=== PATIENT | male | born 1960 | race Caucasian/White ===

== ENCOUNTER 2021-03-13 07:50 | Observation (INO) | payer BC ==
[~2021-03-13] VITALS: Ht 177.8 cm; Wt 85.0 kg
[2021-03-13] MEDS ORDERED: ASPIRIN 81M81 MG/TA2 PO (07:57)
[2021-03-13] MEDS ORDERED: CRESTOR 10MG10 MG PO (07:57)
[2021-03-13 08:24] LABS: BASO # 0.1 (0.0-0.2); BASO % 0.8 % (0.0-2.0); EOS # 0.1 (0.0-0.7); EOS % 1.4 % (0-4.0); GRAN % 76.5 % (42.2-75.2); HEMATOCRIT 41.4 % (42.0-52.0); LYMPH # 1.1 (1.2-3.4); LYMPH % 16.1 % (20.0-51.0); MEAN CELL VOLUME 89 fl (80.0-100.0); MEAN CORPUSCULAR HEMOGLOBIN 30 pg (27.0-31.0); MEAN CORPUSCULAR HGB CONC 34 g/dl (33.0-37.0); MEAN PLATELET VOLUME 9.8 fl (7.4-10.4); MONO # 0.3 (0.1-0.6); MONO % 4.9 % (1.7-9.3); PLATELET COUNT 175 K/mm3 (130-400); RED BLOOD COUNT 4.66 M/mm3 (4.20-5.60)
[2021-03-13 08:32] LABS: INR 1.1 (0.8-3.0); PROTHROMBIN TIME 11.7 SECONDS (9.7-12.8)
[2021-03-13 08:37] VITALS: BP 163/83; PULSE 100
[2021-03-13 08:37] LABS: ALANINE AMINOTRANSFERASE 71 U/L (4-49); ALBUMIN 3.9 gm/dL (3.5-5.0); ALKALINE PHOSPHATASE 66 U/L (50-136); ANION GAP 4 mmol/L (7-16); AST,SGOT 91 U/L (15-37); BILIRUBIN,TOTAL 1.1 mg/dL (0.0-1.0); BLOOD UREA NITROGEN 20 mg/dL (9-20); CALCIUM 8.8 mg/dL (8.4-10.2); CARBON DIOXIDE 27 mmol/L (22-30); CHLORIDE 106 mmol/L (98-107); CREATINE KINASE 225 U/L (55-170); CREATININE, serum 0.84 (0.66-1.25); GLUCOSE 152 mg/dL (74-106); LIPASE 42 U/L (23-300); POTASSIUM 4.4 mmol/L (3.4-5.0); SODIUM 137 mmol/L (137-145); TOTAL PROTEIN 6.3 gm/dL (6.4-8.2)
[2021-03-13 08:40] LABS: C-REACTIVE PROTEIN < 0.5 mg/dL (0.0-0.9)
[2021-03-13 08:45] LABS: COLLECTION METHOD CATHETER
[2021-03-13 08:55] LABS: MUCOUS Present /lpf; PH 6 (5-8); SQUAMOUS EPITHELIAL None Seen /hpf; URINE APPEARANCE Clear; URINE BACTERIA None Seen /hpf; URINE BILIRUBIN Negative (NEGATIVE); URINE BLOOD Negative (NEGATIVE); URINE COLOR Yellow; URINE GLUCOSE Negative (NEGATIVE); URINE KETONE 1+ (NEGATIVE); URINE LEUKOCYTE ESTERASE Negative (NEGATIVE); URINE NITRATE Negative (NEGATIVE); URINE PROTEIN(semi-quant) Negative (NEGATIVE); URINE RBC 0-2 /hpf; URINE UROBILINOGEN Negative (NEGATIVE)
[2021-03-13 09:30] LABS: TROPONIN-I < 0.012 ng/mL (0.000-0.035)
[2021-03-13 13:38] VITALS: BP 124/65; PULSE 80; TEMP 98.6
--- NOTE | 2021-03-13 14:02 | NUR ---
Patient admitted to room 322. Patient has tele no on. Called ICU nurse, no boxes avaliable. Called Kaylee Pimentel. made her aware of needing box.
[2021-03-13] MEDS ORDERED: ONE DAILY MULTI1 TA1 PO (14:57)
[2021-03-13] MEDS ORDERED: SELENIUM200 MC5 PO (14:58)
--- NOTE | 2021-03-13 15:00 | NUR ---
Patient is sitting in chair, alert and oriented x 4, vital signs stable, no pain at the moment. Patients has an abrassion in the right occipital site, with redness and some dried blood with a an 3.5 cm diameter. No neurological problems noted, CECILIA, no weakness, strong extremities, follows comands. No nausea or vomiting, bowel sounds present. Patient reports no further needs at the moment. Call ligth within reach.
[2021-03-13 15:30] VITALS: BP 126/72; PULSE 81; TEMP 98.1
--- NOTE | 2021-03-13 16:56 | NUR ---
Patient is watching TV, sitting in bed, reports no pain or further needs at the moment. Call light within reach.
--- NOTE | 2021-03-13 19:16 | NUR ---
Patient resting in bed. IVF as ordered. He is aware of plan of care. Bedside report to night nurse.
[2021-03-13 19:51] VITALS: BP 109/68; PULSE 71; TEMP 98
--- NOTE | 2021-03-13 20:00 | NUR ---
PATIENT IS CALM IN THE ROOM.DUE MEDS GIVRN,ASSESSMENT DONE.DENIES PAIN.IV ACCESS ON THE LT UPPER ARM WAS INFILTRATED.IV LINE DISCONTINUED.IV ACCESS STARTED ON THE LT HAND.PT LEFT COMFORTABLE.NO OTHER NEEDS AT THIS TIME.
[2021-03-13 20:54] VITALS: BP 171/67; PULSE 60; TEMP 98
[2021-03-14] VITALS (9 sets, daily range): BP systolic 114–138; BP diastolic 67–84; PULSE 58–102; TEMP 97.7–98.5
--- NOTE | 2021-03-14 06:12 | NUR ---
PATIENT HAD A RESTFUL NIGHT.ON NPO FOR CARDIAC GRADED EXERCISE.NO CONCERNS RAISED.
--- NOTE | 2021-03-14 06:40 | NUR ---
awake resting in bed, bedside shift report received from ARSEN Dela Cruz
[2021-03-14 07:36] LABS: BASO % 0.6 % (0.0-2.0); EOS # 0.1 (0.0-0.7); EOS % 2.3 % (0-4.0); GRAN # 3.3 (1.4-6.5); HEMATOCRIT 43.8 % (42.0-52.0); HEMOGLOBIN 14.4 g/dl (13.5-18.0); LYMPH # 1.5 (1.2-3.4); LYMPH % 27.9 % (20.0-51.0); MEAN CELL VOLUME 91 fl (80.0-100.0); MEAN CORPUSCULAR HEMOGLOBIN 30 pg (27.0-31.0); MEAN CORPUSCULAR HGB CONC 33 g/dl (33.0-37.0); MEAN PLATELET VOLUME 10.3 fl (7.4-10.4); MONO # 0.4 (0.1-0.6); MONO % 6.8 % (1.7-9.3); PLATELET COUNT 190 K/mm3 (130-400); REDCELL DISTRIBUTION WIDTH-CV 13.3 % (11.5-14.5)
[2021-03-14 07:44] LABS: ALBUMIN 3.8 gm/dL (3.5-5.0); BILIRUBIN,TOTAL 0.8 mg/dL (0.0-1.0); CREATININE, serum 0.69 (0.66-1.25); POTASSIUM 4.2 mmol/L (3.4-5.0); TOTAL PROTEIN 6.5 gm/dL (6.4-8.2)
--- NOTE | 2021-03-14 08:03 | NUR ---
resting in bed, full assessment completed, see interventions for further info, has dressing to top of head and that is CD&I, denies c/os headache today, denies needs, instructed to call for help when getting up to bathroom or getting out of bed due to being a high fall risk, verbalizes understanding
--- NOTE | 2021-03-14 09:06 | NUR ---
off unit for rahul scan
--- NOTE | 2021-03-14 10:22 | NUR ---
remains off the unit for lexiscan
--- NOTE | 2021-03-14 10:54 | NUR ---
returned to room per WC from leif, Dr Jenkins visit with patient, will wait until he reviews the scan to start with eating and drinking
--- NOTE | 2021-03-14 11:25 | NUR ---
Dr August and care team in to see patient, will instruct on ordering something to eat,
--- NOTE | 2021-03-14 11:29 | NUR ---
DINA met with the patient to discuss discharge plan. The patient [place] [facility] with his friend, Cheng Lares (ph#[phone]). He reports independence with ADLs and does not have any DME. The patient states that he has seen Dr. Sheeba Gonzaelz and Radha Brewer PA-C in [place] for primary care and he receives his medications from [facility]. He reports no difficulties obtaining his meds. The patient is listed as self pay. The patient reports that he has [employer], but that the ED doctor informed him to try and use Workers Compensation, since the event that brought him to the hospital was at work. DINA notified renal medicine specialist, admissions, and financial counselor (Rere). The patient does not have a DPOA-HC, but he was interested in obtaining a form. DINA provided. The patient states that he is not , has no children, his parents have , and that he has one sister. DINA informed his that his sister would be his legal next of kin. The patient verbalized understanding. The patient plans to return home with his friend upon discharge. No additional needs at this time. *Discharge plan: home with friend*
[2021-03-14] MEDS ORDERED: TOPROL XL 50MG50 MG PO (11:36)
--- NOTE | 2021-03-14 11:36 | NUR ---
Was notified by DINA that patient was wondering about a worker's comp claim for this stay since the event happened at work. 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 I left my name with the patient and advised him to contact me with any questions or concerns he has.
--- NOTE | 2021-03-14 12:15 | NUR ---
has ordered lunch, provided water
--- NOTE | 2021-03-14 13:37 | NUR ---
discharge instructions given to patient, verbalizes understanding
--- NOTE | 2021-03-14 13:50 | NUR ---
discharged per WC
== END 2021-03-14 13:50 | disposition home or self-care (01) ==
LOC: COL.ER 07:50 → SURG 09:23
PROVIDERS: Emergency Medicine; Physician Assistant; ADMIT Internal Medicine
DX: I47.1 Supraventricular tachycardia (principal); I95.1 Orthostatic hypotension; S01.91XA Laceration without foreign body of unspecified part of head, initial encounter; W18.30XA Fall on same level, unspecified, initial encounter; Z86.718 Personal history of other venous thrombosis and embolism; Z86.711 Personal history of pulmonary embolism; Z79.82 Long term (current) use of aspirin; Z79.899 Other long term (current) drug therapy; Z87.891 Personal history of nicotine dependence
CPT/HCPCS: A9500; G0378; J1650; J2785; J7030